=== PATIENT | female | born 1930 | race African-American/Black ===

== ENCOUNTER 2019-11-03 15:55 | Inpatient (IN) | payer MEDICARE ==
[~2019-11-03] VITALS: Ht 167.6 cm; Wt 62.6 kg
[2019-11-03] MEDS ORDERED: CARAFATE1 G PO (16:31)
[2019-11-03] MEDS ORDERED: GABAPENTIN300 MG PO (16:31)
[2019-11-03] MEDS ORDERED: HYDRALAZINE HCL25 MG PO (16:31)
[2019-11-03] MEDS ORDERED: LEXAPRO10 MG PO (16:32)
[2019-11-03] MEDS ORDERED: AVAPRO300 MG PO (16:32)
[2019-11-03] MEDS ORDERED: CYPROHEPTAD2 MG/5 ML PO (16:32)
[2019-11-03] MEDS ORDERED: DONEPEZIL HCL5 MG PO (16:32)
[2019-11-03] MEDS ORDERED: HUMALOG 30100 UNITS/ SC (16:33)
[2019-11-03] MEDS ORDERED: MAG-OX 400 MG400 MG PO (16:33)
[2019-11-03] MEDS ORDERED: HYDROCODON-ACE1 EA10 PO (16:34)
[2019-11-03 17:41] LABS: BASOPHILS 0.1 % (0-2); EOSINOPHILS 0.3 % (0-7); HEMATOCRIT 33.3 % (36.0-48.0); HEMOGLOBIN 10.7 g/dL (12-16); IMMATURE GRANULOCYTES 0.1 % (0-5); LYMPHOCYTES 23.4 % (15-50); MCH 31.8 pg (26.0-34.0); MCHC 32.1 g/dL (31.0-37.0); MCV 98.8 fL (80.0-100.0); MEAN PLATELET VOLUME 12.3 fL (7.4-10.4); MONOCYTES 6.7 % (2-11); NEUTROPHILS 69.4 % (40-80); PLATELET COUNT 98 10x3/uL (130-400); RBC 3.37 10x6/uL (4.00-5.40); RDW 13.8 % (11.5-14.5); WBC 6.9 10x3/uL (4.8-10.8)
[2019-11-03 17:44] LABS: ANION GAP 18.5 mmol/L (8-16); CALCIUM 8.6 mg/dL (8.5-10.1); CARBON DIOXIDE 17.9 mmol/L (21.0-32.0); POTASSIUM - SERUM 5.4 mmol/L (3.5-5.1)
[2019-11-03 17:50] LABS: ALBUMIN 3.2 g/dL (3.4-5.0); BILIRUBIN - TOTAL 0.12 mg/dL (0.2-1.3); MAGNESIUM - SERUM 3.1 mg/dL (1.8-2.4); PROTEIN - SERUM 6.9 g/dL (6.4-8.2)
[2019-11-03 18:00] LABS: PLATELET ESTIMATE NORMAL
--- NOTE | 2019-11-03 18:43 | NUR ---
ATTEMPT TO CALL REPORT, ROOM IS DIRTY .
--- NOTE | 2019-11-03 19:45 | NUR ---
REPORT RECIEVED FROM ER.
--- NOTE | 2019-11-03 20:30 | NUR ---
ADMIT TO ROOM 2121 FROM ER. ACCOMPANIED BY DAUGHTERS X 2. ADMISSION HISTORY AND ASSESSMENT COMPLETED WITH FAMILY ASSISTANCE. PT HAS LITTLE TO SAY AND IS SLOW TO ANSWER. IVF .45NS +2AMPS BICARB INFUSING @ 125ML/HR TO LEFT ARM. PT HAS A COLOSTOMY/INTACT AND ALSO WEARING A BRIEF. PLAN OF CARE INITIATED. CPOC.
--- NOTE | 2019-11-03 23:36 | NUR ---
FSBS 140. PT RESTING WITH EYES CLOSED. COLOSTOMY BURPED. SR UP X 2. CALL LIGHT IN REACH. FALL PRECAUTIONS IN PLACE.
[2019-11-03 23:51] VITALS: BP 140/57; BMI 21.3
[2019-11-04 00:30] VITALS: BP 102/84
--- NOTE | 2019-11-04 01:31 | NUR ---
PT'S COLOSTOMY TO ABDOMEN LEAKING. BATH PROVIDED AND NEW COLOSTOMY APPLIED. SKIN TO ABODMEN/STOMA SITE IS INTACT/NO IRRITATION AND NEW WAFER /BAG APPLIED WITHOUT ISSUE. PT ALSO PULLED OUT HER IV TO LEFT ARM. WILL ATTEMPT RESITE. PT NOW CLEAN/DRY AND BED ALARM ACTIVATED. CPOC.
[2019-11-04 04:30] VITALS: BP 165/79
[2019-11-04 04:54] LABS: BASOPHILS 0.2 % (0-2); EOSINOPHILS 1.2 % (0-7); HEMATOCRIT 33.1 % (36.0-48.0); HEMOGLOBIN 10.9 g/dL (12-16); LYMPHOCYTES 18.8 % (15-50); MCHC 32.9 g/dL (31.0-37.0); MCV 97.1 fL (80.0-100.0); MONOCYTES 9.4 % (2-11); NEUTROPHILS 70.4 % (40-80); PLATELET COUNT 100 10x3/uL (130-400); RBC 3.41 10x6/uL (4.00-5.40); RDW 13.5 % (11.5-14.5)
[2019-11-04 05:21] LABS: ALBUMIN 3.2 g/dL (3.4-5.0); ANION GAP 17.6 mmol/L (8-16); BILIRUBIN - TOTAL 0.18 mg/dL (0.2-1.3); CALCIUM 8.8 mg/dL (8.5-10.1); CARBON DIOXIDE 19.3 mmol/L (21.0-32.0); CREATININE - SERUM 6.9 mg/dL (0.6-1.3); MAGNESIUM - SERUM 2.9 mg/dL (1.8-2.4); PHOSPHOROUS 3.8 mg/dL (2.5-4.9); POTASSIUM - SERUM 4.9 mmol/L (3.5-5.1); PROTEIN - SERUM 7.2 g/dL (6.4-8.2)
--- NOTE | 2019-11-04 06:00 | NUR ---
WITH FALL PRECAUTIONS IN PLACE, PT HAS ATTEMPTED 3 TIMES TO CLIMB OVER RAILS TO "PEE". EACH TIME STAFF WAS ABLE TO GET TO HER TO ASSIST BUT SHE HAS NO STRENGTH AND JUST LOSES HER BALANCE. CONFUSED, DOES NOT TAKE DIRECTION WELL. VERY FORGETFUL. ATTEMPTED TIMES 5 STICKS TO RESITE IV AND ONE NURSE SUCCEEDED ONLY TO HAVE PATIENT IMMEDIATELY PULL IT OUT. DAY SHIFT NOTIFIED THAT PT NEEDS IV PLACEMENT.
--- NOTE | 2019-11-04 06:45 | NUR ---
WALKING ROUNDS COMPLETED AND REPORT GIVEN. PT AGAIN CLIMBING OVER RAILS AND WAS TAKEN TO BSC. FALL ALARM IN PLACE.
[2019-11-04 08:43] VITALS: BP 158/73
[2019-11-04 11:18] LABS: % SATURATION 42 % (15-55); IRON 71 ug/dl (35-150); TOTAL IRON BIND CAPACITY 167 ug/dl (260-445); UNSAT IRON BIND CAPACITY 96 ug/dl (150-375)
[2019-11-04 11:37] LABS: ERYTHROCYTE SEDIMENTATION RATE 20 mm/hr (0-42)
[2019-11-04 12:16] VITALS: BP 148/74
--- NOTE | 2019-11-04 12:35 | NUR ---
HELPED PT TO BEDSIDE COMMODE AND BACK TO BED. URINE SAMPLE COLLECTED AT THIS TIME. AND TAKEN TO LAB. PT DENIES ANY OTHER NEEDS AT THIS TIME. CALL LIGHT IN REACH, BEDSIDE RAILS X2, BED ALARM ON, NAD NOTED, WILL CONTINUE TO MONITOR.
[2019-11-04 13:46] LABS: PRO/CRE RATIO URINE 0.5 mg/g; PROTEIN - URINE 77.2 mg/dL (0.0-11.9)
[2019-11-04 14:46] LABS: BACTERIA MANY /hpf (NEGATIVE); BILIRUBIN NEGATIVE (NEGATIVE); EPITHELIAL CELLS 0-5 /hpf (0-5); GLUCOSE NEGATIVE (NEGATIVE); GRANULAR CAST 0-5 /lpf (NONE SEEN); HYALINE CAST 0-5 /lpf (NONE SEEN); KETONE NEGATIVE (NEGATIVE); NITRITE NEGATIVE (NEGATIVE); RED CELLS - URINE 0-5 /hpf (0-5); SPECIFIC GRAVITY 1.015 (1.005-1.020); UROBILINOGEN NORMAL (NORMAL); WHITE CELLS - URINE OCC /hpf (NEGATIVE)
[2019-11-04 15:31] VITALS: Ht 167.6 cm; Wt 62.6 kg
[2019-11-04 15:47] VITALS: BP 114/93
--- NOTE | 2019-11-04 19:38 | NUR ---
UP WITH ASSIST TO BSC. ASSISTED PT BACK TO BED, BED ALARM IN USE.
[2019-11-04 20:34] VITALS: BP 135/61
[2019-11-05 00:31] VITALS: BP 177/74
--- NOTE | 2019-11-05 02:54 | NUR ---
RESTING WITH EYES CLOSED, RESPERATIONS EVEN, NO S/S DISTRESS NOTED.
[2019-11-05 05:19] VITALS: BP 135/53
[2019-11-05 08:52] LABS: BASOPHILS 0.3 % (0-2); EOSINOPHILS 1.4 % (0-7); HEMATOCRIT 29.7 % (36.0-48.0); HEMOGLOBIN 9.9 g/dL (12-16); LYMPHOCYTES 29.2 % (15-50); MCH 31.9 pg (26.0-34.0); MCHC 33.3 g/dL (31.0-37.0); MCV 95.8 fL (80.0-100.0); MEAN PLATELET VOLUME 12.9 fL (7.4-10.4); MONOCYTES 7.7 % (2-11); NEUTROPHILS 61.4 % (40-80); PLATELET COUNT 90 10x3/uL (130-400); RDW 13.2 % (11.5-14.5)
[2019-11-05 09:01] LABS: CALCIUM 8.4 mg/dL (8.5-10.1)
[2019-11-05 09:03] LABS: ANION GAP 10.3 mmol/L (8-16); CARBON DIOXIDE 26.8 mmol/L (21.0-32.0); CREATININE - SERUM 4.1 mg/dL (0.6-1.3); POTASSIUM - SERUM 4.1 mmol/L (3.5-5.1)
[2019-11-05 09:06] LABS: WBC 3.6 10x3/uL (4.8-10.8)
[2019-11-05 09:52] VITALS: BP 183/62
[2019-11-05 10:44] LABS: PLATELET ESTIMATE DECREASED
[2019-11-05 10:45] LABS: ANISOCYTOSIS OCC
[2019-11-05 14:08] VITALS: BP 134/55
--- NOTE | 2019-11-05 14:38 | NUR ---
PER JUAN, PHARMACIST. ROCEPHINE IS COMPATIBLE WITH 1/2NS WITH 2AMPS OF SODIUM BICARB.
[2019-11-05 15:10] LABS: SPE - A/G RATIO 0.9 (0.7-1.7); SPE - ALBUMIN 3.2 g/dL (2.9-4.4); SPE - ALPHA-1 GLOBULIN 0.2 g/dL (0.0-0.4); SPE - ALPHA-2 GLOBULIN 0.8 g/dL (0.4-1.0); SPE - BETA GLOBULIN 0.8 g/dL (0.7-1.3); SPE - GAMMA GLOBULIN 1.5 g/dL (0.4-1.8); SPE - M-SPIKE 1.1 g/dL (Not Observed); SPE - TOTAL PROTEIN 6.6 g/dL (6.0-8.5)
[2019-11-05 16:00] VITALS: BP 158/56
--- NOTE | 2019-11-05 16:16 | NUR ---
BLOOD SUGAR OF 81, NO COVERAGE NEEDED PER S/S PT RESTING COMFORTABLY IN BED, DENIES ANY NEEDS AT THIS TIME. CALL LIGHT IN REACH, NAD NOTED, WILL CONTINUE TO MONITOR.
--- NOTE | 2019-11-05 20:13 | NUR ---
UP WITH ASSIST TO BSC.
[2019-11-05 21:17] VITALS: BP 124/61
[2019-11-06 00:26] VITALS: BP 112/53
--- NOTE | 2019-11-06 02:14 | NUR ---
I have reviewed this patient and I concur with the Shift Assessment completed by the Licensed Practical Nurse today this shift.
[2019-11-06 06:00] VITALS: BP 133/62
[2019-11-06 07:25] LABS: ANION GAP 9.3 mmol/L (8-16); CALCIUM 7.8 mg/dL (8.5-10.1); CARBON DIOXIDE 27.8 mmol/L (21.0-32.0); POTASSIUM - SERUM 4.1 mmol/L (3.5-5.1)
[2019-11-06 07:31] LABS: BASOPHILS 0.2 % (0-2); EOSINOPHILS 2.4 % (0-7); HEMATOCRIT 26.7 % (36.0-48.0); HEMOGLOBIN 8.8 g/dL (12-16); IMMATURE GRANULOCYTES 0.2 % (0-5); LYMPHOCYTES 33.8 % (15-50); MCH 31.7 pg (26.0-34.0); MEAN PLATELET VOLUME 12.7 fL (7.4-10.4); MONOCYTES 8.5 % (2-11); NEUTROPHILS 54.9 % (40-80); PLATELET COUNT 92 10x3/uL (130-400); RBC 2.78 10x6/uL (4.00-5.40); RDW 13.1 % (11.5-14.5); WBC 4.1 10x3/uL (4.8-10.8)
--- NOTE | 2019-11-06 08:58 | NUR ---
HELPED PT BEDSIDE COMMODE AND BACK TO BED. GOWN CHANGED, AM MEDS GIVEN AT THIS TIME. PT DENIES ANY OTHER NEEDS AT THIS TIME. CALL LIGHT IN REACH, NAD NOTED, WILL CONTINUE PLAN OF CARE.
[2019-11-06 11:29] VITALS: BP 145/57
--- NOTE | 2019-11-06 14:42 | NUR ---
Nutrition Follow-up: Per record, pt ate 100% of breakfast and 50% of lunch today. Diet: Renal ADA PO intake: 65% avg x 5 meals Wt: 137.7# (11/05); 132.2# (11/03) Labs noted: Na 146, K+ 4.1, Glu 102, Ca 7.8 Meds noted: D5 1/2NS @ 75, Protonix, Humulin -Encourage PO intake. -Monitor wt; noted daily wts ordered. -RD following.
[2019-11-06 15:19] VITALS: BP 141/81
--- NOTE | 2019-11-06 17:06 | NUR ---
BLOOD SUGAR OF 84, NO COVERAGE NEEDED PER S/S. HELPED PT TO BEDSIDE COMMODE AND BACK TO BED. ALSO EMPTIED ABOUT 100CC OUT OF COLOSTOMY BAG. PT DENIES ANY OTHER NEEDS AT THIS TIME. CALL LIGHT IN REACH, BED ALARM ON.
--- NOTE | 2019-11-06 19:16 | NUR ---
RECEIVED BEDSIDE REPORT. PATIENT IS ALERT AND ORIENTED, RESTING COMFORTABLY IN BED. RESPIRATIONS ARE EVEN AND UNLABORED. NO S/S OF DISTRESS. NO C/OPAIN. CALL LIGHT WITHIN REACH. WILL CPOC.
[2019-11-06 20:00] VITALS: BP 138/63
[2019-11-07] VITALS: BP 148/75
[2019-11-07 04:00] VITALS: BP 126/71
[2019-11-07 05:46] LABS: ANION GAP 10.1 mmol/L (8-16); CALCIUM 7.6 mg/dL (8.5-10.1); CARBON DIOXIDE 27.9 mmol/L (21.0-32.0); CREATININE - SERUM 2.6 mg/dL (0.6-1.3)
[2019-11-07 05:47] LABS: BASOPHILS 0.2 % (0-2); EOSINOPHILS 1.8 % (0-7); HEMATOCRIT 25.5 % (36.0-48.0); HEMOGLOBIN 8.4 g/dL (12-16); IMMATURE GRANULOCYTES 0.2 % (0-5); MCH 31.3 pg (26.0-34.0); MCHC 32.9 g/dL (31.0-37.0); MCV 95.1 fL (80.0-100.0); MEAN PLATELET VOLUME 11.7 fL (7.4-10.4); MONOCYTES 10.9 % (2-11); NEUTROPHILS 49.9 % (40-80); PLATELET COUNT 89 10x3/uL (130-400); RBC 2.68 10x6/uL (4.00-5.40); RDW 12.9 % (11.5-14.5); WBC 4.5 10x3/uL (4.8-10.8)
[2019-11-07 09:11] LABS: PLATELET ESTIMATE DECREASED
[2019-11-07 09:12] LABS: ANISOCYTOSIS OCC
[2019-11-07 10:00] VITALS: BP 142/85
[2019-11-07 14:04] VITALS: BP 156/66
[2019-11-07 18:03] VITALS: BP 158/80
[2019-11-07 20:30] VITALS: BP 122/74
[2019-11-08 00:30] VITALS: BP 159/72
--- NOTE | 2019-11-08 03:39 | NUR ---
I have reviewed this patient and I concur with the Shift Assessment completed by the Licensed Practical Nurse today this shift.
--- NOTE | 2019-11-08 04:11 | NUR ---
PT UP TO BSC, IV TO RIGHT ARM OUT. IV REISTED TO RIGHT HAND, 20 GUAGE, PT TOLERATED WELL.
[2019-11-08 04:30] VITALS: BP 168/81
[2019-11-08 05:33] LABS: BASOPHILS 0.2 % (0-2); HEMATOCRIT 27.4 % (36.0-48.0); HEMOGLOBIN 8.9 g/dL (12-16); IMMATURE GRANULOCYTES 0.4 % (0-5); LYMPHOCYTES 35.6 % (15-50); MCH 31.6 pg (26.0-34.0); MCHC 32.5 g/dL (31.0-37.0); MEAN PLATELET VOLUME 11.7 fL (7.4-10.4); MONOCYTES 8.6 % (2-11); NEUTROPHILS 53.2 % (40-80); PLATELET COUNT 92 10x3/uL (130-400); RBC 2.82 10x6/uL (4.00-5.40); RDW 12.9 % (11.5-14.5); WBC 4.9 10x3/uL (4.8-10.8)
[2019-11-08 05:39] LABS: MCV 97.2 fL (80.0-100.0)
[2019-11-08 05:55] LABS: ANION GAP 10.9 mmol/L (8-16); CALCIUM 7.7 mg/dL (8.5-10.1); CARBON DIOXIDE 29.3 mmol/L (21.0-32.0); CREATININE - SERUM 2.2 mg/dL (0.6-1.3); POTASSIUM - SERUM 4.2 mmol/L (3.5-5.1)
--- NOTE | 2019-11-08 07:10 | NUR ---
REPORT RECEIVED [facility] CHIEF EMBALMER AND PATIENT CARE ASSUMED. PATIENT LAYING IN BED ON RT SIDE WITH EYES CLOSED AND BREATHING EVENLY. WILL CONTINUE WITH PLANH OF CARE. SR UP X 2 BED IN LOW POSITION AND CALL LIGHT IN REACH.
[2019-11-08 10:45] LABS: UPE RAND - ALBUMIN 37.1 % (()); UPE RAND - ALPHA 1 GLOBULIN 24.1 % (()); UPE RAND - BETA GLOBULIN 12.9 % (()); UPE RAND - GAMMA GLOBULIN 16.9 % (())
[2019-11-08 10:46] VITALS: BP 157/77
[2019-11-08] MEDS ORDERED: OMNICEF300 MG PO (12:45)
--- NOTE | 2019-11-08 13:30 | NUR ---
PATIENT IS STABLE AND VSS. PATIENT DENIES ANY NEEDS OR PAIN. WILL CONTINUE TO MONITOR. SR UP X 2 BED IN LOW POSITION AND CALL LIGHT IN REACH.
--- NOTE | 2019-11-08 15:30 | MORECARE ---
CASE MANAGEMENT DISCHARGE SUMMARY PATIENT: LONNIE NEWTON UNIT: [id number] ADM DATE: 11/03/19 AGE: 89 : [birth year] SEX: F ROOM/BED: D.1313 AUTHOR: SPENCER,DOC PHYSICIAN: REFERRING PHYSICIAN: CARLOS CONTI MD DATE OF SERVICE: 11/08/19 Discharge Plan Patient Name: LONNIE NEWTON Facility: [facility]:[place] : 1930 Planned Disposition: Home Anticipated Discharge Date: 11/08/19 Discharge Date: Expected LOS: 5 Initial Reviewer: [email or web address] Initial Review Date: 11/08/2019 Generated: 11/08/19 4:30 pm DCP- Discharge Planning Updated by [email or web address]: Severino Hodges on 11/08/19 2:[address] Patient Name: LONNIE NEWTON Admission Status: ER Accout number: [id number] Admission Date: 11-03-2019 : 1930 Admission Diagnosis: Attending: CARLOS CONTI Current LOS: 5 Anticipated DC Date: 11-08-2019 Planned Disposition: Home Primary Insurance: [facility] MEDICARE SOLUTIONS Discharge Planning Comments: CM MET WITH PT IN ROOM TO DISCUSS DISCHARGE PLANNING AND NEEDS. PT REPORTS LIVING AT HOME "MOSTLY" INDEPENDENTLY WITH HER ADULT DAUGHTER. PT REPORTS THAT HER DAUGHTER MANAGES HER MEDICATIONS FOR HER. PT HAS CANE AND GLUCOMETER WITH NO MEDICAL EQUIPMENT PROVIDER PREFERENCE. PT HAS NO OUTSIDE SERVICES ASSISTING IN THE HOME. CM DISCUSSED AVAILABILITY OF HOME HEALTH, REHAB SERVICES AND MEDICAL EQUIPMENT. PT DENIES DISCHARGE NEEDS, REPORTS HER DAUGHTER IS HERE IN [place] AT [facility] AND SHE WILL PICK PT UP FOR DISCHARGE HOME. IMPORTANT MESSAGE FROM MEDICARE PROVIDED AND EXPLAINED. PT WILL HAVE HER DAUGHTER CALL CM WHEN SHE RETURNS TO THE HOSPITAL IF SHE FEELS PT NEEDS ANYTHING ARRANGED FOR DISCHARGE HOME TODAY. FIRER GLOST KILN NURSE NOTIFIED. Strategic Marketing Specialist: Severino Hodges DCPIA - Discharge Planning Initial Assessment Updated by [email or web address]: Severino Hodges on 11/08/19 3:26 pm * Is the patient Alert and Oriented? Yes * How many steps to enter\\exit or inside your home? * PCP DR. KRISTY GUERRA IN [place] OR [facility] IN [place] * Pharmacy [facility] IN [place] * Preadmission Environment Home with Family * ADLs Partial Dependent * Partial ADLs (Assistance needed) Medication Management * Equipment Cane Glucometer * Other Equipment NO MEDICAL EQUIPMENT PROVIDER PREFERENCE * List name and contact numbers for known caregivers / representatives who currently or will assist patient after discharge: EBENEZERTIFFANIE MCKEON, DTR, * Verbal permission to speak to the caregivers and representatives has been obtained from the patient. N/A * Community resources currently utilized None * Please name any agencies selected above. NONE * Additional services required to return to the preadmission environment? No * Can the patient safely return to the preadmission environment? Yes * Has this patient been hospitalized within the prior 30 days at any hospital? No Coverage Notice Reviewer: [email or web address] Devonte Hodges Notice Issued Date-Time: 11/08/2019 13:40 Notice Type: IM Discharge Notice Notice Delivered To: Patient Relationship to Patient: Office Messenger Name: Delivery Method: HAND - Hand Delivered Barbie Days: Prior Verbal Notification: Recipient Understood Notice: Yes Recipient Signature: Yes Med Rec Note Co-signed by Attending: Coverage Notice Comment: Patient Name: LONNIE NEWTON Page [id number] at 1530 All edits/amendments must be made on the electronic document DICTATION DATE: 11/08/19 153 FLY FRAME TENDER: MARKEL 11/08/19 153 RPT#: [id number] DC DATE: STATUS: ADM IN [facility] [address] [place] [address] END OF REPORT
--- NOTE | 2019-11-08 17:17 | MORECARE ---
CASE MANAGEMENT DISCHARGE SUMMARY PATIENT: LONNIE NEWTON UNIT: [id number] ADM DATE: 11/03/19 AGE: 89 : [birth year] SEX: F ROOM/BED: D.6364 AUTHOR: SPENCER,DOC PHYSICIAN: REFERRING PHYSICIAN: CARLOS CONTI MD DATE OF SERVICE: 11/08/19 Discharge Plan Patient Name: LONNIE NEWTON Facility: [facility]:[place] : 1930 Planned Disposition: Home Anticipated Discharge Date: 11/08/19 Discharge Date: Expected LOS: 5 Initial Reviewer: [email or web address] Initial Review Date: 11/08/2019 Generated: 11/08/19 6:17 pm DCP- Discharge Planning Updated by [email or web address]: Severino Hodges on 11/08/19 2:[address] Patient Name: LONNIE NEWTON Admission Status: ER Accout number: [id number] Admission Date: 11-03-2019 : 1930 Admission Diagnosis: Attending: CARLOS CONTI Current LOS: 5 Anticipated DC Date: 11-08-2019 Planned Disposition: Home Primary Insurance: [facility] MEDICARE SOLUTIONS Discharge Planning Comments: CM MET WITH PT IN ROOM TO DISCUSS DISCHARGE PLANNING AND NEEDS. PT REPORTS LIVING AT HOME "MOSTLY" INDEPENDENTLY WITH HER ADULT DAUGHTER. PT REPORTS THAT HER DAUGHTER MANAGES HER MEDICATIONS FOR HER. PT HAS CANE AND GLUCOMETER WITH NO MEDICAL EQUIPMENT PROVIDER PREFERENCE. PT HAS NO OUTSIDE SERVICES ASSISTING IN THE HOME. CM DISCUSSED AVAILABILITY OF HOME HEALTH, REHAB SERVICES AND MEDICAL EQUIPMENT. PT DENIES DISCHARGE NEEDS, REPORTS HER DAUGHTER [place] [facility] AND SHE WILL PICK PT UP FOR DISCHARGE HOME. IMPORTANT MESSAGE FROM MEDICARE PROVIDED AND EXPLAINED. PT WILL HAVE HER DAUGHTER CALL CM WHEN SHE RETURNS TO THE HOSPITAL IF SHE FEELS PT NEEDS ANYTHING ARRANGED FOR DISCHARGE HOME TODAY. BAND CUTTING MACHINE OPERATOR NURSE NOTIFIED. Contractor Broomcorn Threshing: Severino Hodges DCPIA - Discharge Planning Initial Assessment Updated by [id number]: Severino Hodges on 11/08/19 3:26 pm * Is the patient Alert and Oriented? Yes * How many steps to enter\\exit or inside your home? * PCP DR. KRISTY GUERRA IN [place] OR [facility] IN [place] * Pharmacy [facility] IN [place] * Preadmission Environment Home with Family * ADLs Partial Dependent * Partial ADLs (Assistance needed) Medication Management * Equipment Cane Glucometer * Other Equipment NO MEDICAL EQUIPMENT PROVIDER PREFERENCE * List name and contact numbers for known caregivers / representatives who currently or will assist patient after discharge: EBENEZER MCKEON, DTR, * Verbal permission to speak to the caregivers and representatives has been obtained from the patient. N/A * Community resources currently utilized None * Please name any agencies selected above. NONE * Additional services required to return to the preadmission environment? No * Can the patient safely return to the preadmission environment? Yes * Has this patient been hospitalized within the prior 30 days at any hospital? No External Providers External Provider: [facility] Next Contact Date: 11/08/2019 Service Request Date: Service Type: Resolution: Reviewer: Comments: Coverage Notice Reviewer: [id number] Devonte Hodges Notice Issued Date-Time: 11/08/2019 13:40 Notice Type: IM Discharge Notice Notice Delivered To: Patient Relationship to Patient: Manager Machine Name: Delivery Method: HAND - Hand Delivered Barbie Days: Prior Verbal Notification: Recipient Understood Notice: Yes Recipient Signature: Yes Med Rec Note Co-signed by Attending: Coverage Notice Comment: Last DP export: 11/08/19 2:30 pm Patient Name: LONNIE NEWTON Page [phone] at 1717 All edits/amendments must be made on the electronic document DICTATION DATE: 11/08/191716 HEALTH IT SPECIALIST: MARKEL 11/08/191716 RPT#: [id number] DC DATE: STATUS: ADM IN [facility] [address] [place] [address] END OF REPORT
--- NOTE | 2019-11-08 17:24 | MORECARE ---
CASE MANAGEMENT DISCHARGE SUMMARY PATIENT: LONNIE NEWTON UNIT: [id number] ADM DATE: 11/03/19 AGE: 89 : [birth year] SEX: F ROOM/BED: D.0388 AUTHOR: SPENCER,DOC PHYSICIAN: REFERRING PHYSICIAN: CARLOS CONTI MD DATE OF SERVICE: 11/08/19 Discharge Plan Patient Name: LONNIE NEWTON Facility: [facility]:[place] : 1930 Planned Disposition: Home Anticipated Discharge Date: 11/08/19 Discharge Date: Expected LOS: 5 Initial Reviewer: [email or web address] Initial Review Date: 11/08/2019 Generated: 11/08/19 6:23 pm Comments DCP- Discharge Planning Updated by [email or web address]: Severino Naranjo on 11/08/19 4:[address] Patient Name: LONNIE NEWTON Admission Status: ER Accout number: [id number] Admission Date: 11-03-2019 : 1930 Admission Diagnosis: Attending: CARLOS CONTI Current LOS: 5 Anticipated DC Date: 11-08-2019 Planned Disposition: Home Primary Insurance: [facility] MEDICARE SOLUTIONS Discharge Planning Comments: CM MET WITH PT IN ROOM TO DISCUSS DISCHARGE PLANNING AND NEEDS. PT REPORTS LIVING AT HOME "MOSTLY" INDEPENDENTLY WITH HER ADULT DAUGHTER. PT REPORTS THAT HER DAUGHTER MANAGES HER MEDICATIONS FOR HER. PT HAS CANE AND GLUCOMETER WITH NO MEDICAL EQUIPMENT PROVIDER PREFERENCE. PT HAS NO OUTSIDE SERVICES ASSISTING IN THE HOME. CM DISCUSSED AVAILABILITY OF HOME HEALTH, REHAB SERVICES AND MEDICAL EQUIPMENT. PT DENIES DISCHARGE NEEDS, REPORTS HER DAUGHTER IS HERE IN [place] AT [facility] AND SHE WILL PICK PT UP FOR DISCHARGE HOME. IMPORTANT MESSAGE FROM MEDICARE PROVIDED AND EXPLAINED. PT WILL HAVE HER DAUGHTER CALL CM WHEN SHE RETURNS TO THE HOSPITAL IF SHE FEELS PT NEEDS ANYTHING ARRANGED FOR DISCHARGE HOME TODAY. PEDIATRIC DERMATOLOGIST NURSE NOTIFIED. Care Trainer: Severino Naranjo Appended by Severino Naranjo on 11/08/2019 17:19 LEVEE SUPERINTENDENT: MET WITH PT AND DAUGHTER WHO REQUESTED [facility], CHOICE SIGNED, PT AND DAUGHTER DENIES FURHTER NEEDS. CM CALLED [facility], SPOKE TO ANNA WHO TOOK REFERRAL INFORMATION, INFORMED CM THAT IT WOULD BE EARLY NEXT WEEK FOR ADMIT. BEDSIDE NURSE NOTIFIED. CM FAXED HOME HEALTH ORDER AND REFERRAL TO [facility]. PT NOTIFIED. DISCHARGED HOME WITH DAUGHTER. SEVERINO NARANJO, CASE MANAGEMENT DCPIA - Discharge Planning Initial Assessment Updated by [id number]: Severino Naranjo on 11/08/19 3:26 pm * Is the patient Alert and Oriented? Yes * How many steps to enter\\exit or inside your home? * PCP DR. KRISTY GUERRA IN [place] OR [facility] IN [place] * Pharmacy [facility] IN [place] * Preadmission Environment Home with Family * ADLs Partial Dependent * Partial ADLs (Assistance needed) Medication Management * Equipment Cane Glucometer * Other Equipment NO MEDICAL EQUIPMENT PROVIDER PREFERENCE * List name and contact numbers for known caregivers / representatives who currently or will assist patient after discharge: EBENEZER MCKEON DTR, * Verbal permission to speak to the caregivers and representatives has been obtained from the patient. N/A * Community resources currently utilized None * Please name any agencies selected above. NONE * Additional services required to return to the preadmission environment? No * Can the patient safely return to the preadmission environment? Yes * Has this patient been hospitalized within the prior 30 days at any hospital? No Coverage Notice Reviewer: [email or web address] Devonte Naranjo Notice Issued Date-Time: 11/08/2019 13:40 Notice Type: IM Discharge Notice Notice Delivered To: Patient Relationship to Patient: Warehouse Laborer Name: Delivery Method: HAND - Hand Delivered Barbie Days: Prior Verbal Notification: Recipient Understood Notice: Yes Recipient Signature: Yes Med Rec Note Co-signed by Attending: Coverage Notice Comment: Reviewer: [id number] Devonte Naranjo Notice Issued Date-Time: 11/08/2019 17:00 Notice Type: Patient Choice Letter Notice Delivered To: Patient Relationship to Patient: Warehouse Laborer Name: Delivery Method: HAND - Hand Delivered Barbie Days: Prior Verbal Notification: Recipient Understood Notice: Yes Recipient Signature: Yes Med Rec Note Co-signed by Attending: Coverage Notice Comment: [facility] Last DP export: 11/08/19 4:17 pm Patient Name: LONNIE NEWTON Page [phone] at 5754 All edits/amendments must be made on the electronic document DICTATION DATE: 11/08/19 172 ROTARY DRYER OPERATOR: MARKEL 11/08/19 1723 RPT#: [id number] DC DATE: STATUS: ADM IN [facility] [address] [place] [address] END OF REPORT
--- NOTE | 2019-11-08 17:36 | NUR ---
PATIENT IS STABLE AND VSS. ORDERS RECEIVED FOR DC. WRITTEN AND VERBAL INSTRUCTIONS GIVEN TO PATIENT AND FAMILY. BOTH VERBALIZED UNDERSTANDING. PATIENT SIGNED PAPERWORK. IV DCD WITHOUT DIFFICULTY WITH ENTIRE CATHETER INTACT. PRESSURE DRSG APPLIED. PATIENT IS DC HOME FOR SELF CARE. HOME HEALTH CONSULUTED. PATIENT TO FRONT DOOR VIA WC ACCOMPANIED BY HOPSITAL STAFF TO FRONT DOOR TO PRIVATE VEHICLE DRIVEN BY FAMILY.
== END 2019-11-08 18:01 | disposition home health service (06) | DRG 682 ==
LOC: D.ER 15:55 → D.M2 18:05 → D.SDCHOLD 11-07 15:26 → D.M2 11-08 18:01
PROVIDERS: Family Medicine; Internal Medicine Nephrology; ADMIT Internal Medicine Nephrology; ATTEND Internal Medicine Nephrology
DX: N17.9 Acute kidney failure, unspecified (principal); G93.41 Metabolic encephalopathy; N39.0 Urinary tract infection, site not specified; I12.9 Hypertensive chronic kidney disease with stage 1 through stage 4 chronic kidney disease, or unspecified chronic kidney disease; N18.9 Chronic kidney disease, unspecified; D63.1 Anemia in chronic kidney disease; E87.5 Hyperkalemia; F03.90 Unspecified dementia, unspecified severity, without behavioral disturbance, psychotic disturbance, mood disturbance, and anxiety; D69.6 Thrombocytopenia, unspecified; E11.22 Type 2 diabetes mellitus with diabetic chronic kidney disease; E11.65 Type 2 diabetes mellitus with hyperglycemia

== ENCOUNTER 2019-11-25 09:44 | Inpatient (IN) | payer MEDICARE ==
[~2019-11-25] VITALS: Ht 167.6 cm; Wt 54.9 kg
[~2019-11-25 09:44] MED LIST: AVAPRO300 MG PO; CARAFATE1 G PO; CYPROHEPTAD2 MG/5 ML PO; DONEPEZIL HCL5 MG PO; GABAPENTIN300 MG PO; HUMALOG 30100 UNITS/ SC; HYDRALAZINE HCL25 MG PO; HYDROCODON-ACE1 EA10 PO; LEXAPRO10 MG PO; MAG-OX 400 MG400 MG PO; OMNICEF300 MG PO
[2019-11-25] MEDS ORDERED: AVAPRO300 MG PO (09:53)
[2019-11-25] MEDS ORDERED: HYDRALAZINE HCL25 MG PO (09:53)
[2019-11-25 10:21] LABS: HEMATOCRIT 33.8 % (36.0-48.0); HEMOGLOBIN 10.9 g/dL (12-16); LYMPHOCYTES 35.4 % (15-50); MCH 31.7 pg (26.0-34.0); MCHC 32.2 g/dL (31.0-37.0); MCV 98.3 fL (80.0-100.0); MEAN PLATELET VOLUME 11.1 fL (7.4-10.4); NEUTROPHILS 56.4 % (40-80); RBC 3.44 10x6/uL (4.00-5.40); RDW 13.6 % (11.5-14.5); WBC 4.3 10x3/uL (4.8-10.8)
[2019-11-25 10:41] LABS: ANION GAP 15.4 mmol/L (8-16); CALCIUM 8.9 mg/dL (8.5-10.1); CARBON DIOXIDE 23.4 mmol/L (21.0-32.0); CREATININE - SERUM 4.5 mg/dL (0.6-1.3); POTASSIUM - SERUM 4.8 mmol/L (3.5-5.1)
[2019-11-25 10:47] LABS: ALBUMIN 3.3 g/dL (3.4-5.0); BILIRUBIN - TOTAL 0.23 mg/dL (0.2-1.3); PROTEIN - SERUM 7.6 g/dL (6.4-8.2)
[2019-11-25 10:59] LABS: PLATELET COUNT 140 10x3/uL (130-400)
[2019-11-25 11:42] VITALS: BP 126/64
[2019-11-25 12:14] VITALS: BP 155/65
--- NOTE | 2019-11-25 12:30 | NUR ---
PATIENT SITTING UP IN BED EATING AT THIS TIME. NO COMPLAINTS OR SIGNS OF DISTRESS. IV INTACT. SUMMERS AND COLOSTOMY INTACT. NO SKIN BREAKDOWN NOTED ANYWHERE AT THIS TIME. FAMILY AT BEDSIDE. CALL LIGHT WITHIN REACH.
[2019-11-25 15:52] LABS: BILIRUBIN NEGATIVE (NEGATIVE); GLUCOSE NEGATIVE (NEGATIVE); KETONE NEGATIVE (NEGATIVE); NITRITE NEGATIVE (NEGATIVE); UROBILINOGEN NORMAL (NORMAL)
[2019-11-25 15:53] LABS: AMORPHOUS SEDIMENT >1+ /lpf (NONE SEEN); BACTERIA MANY /hpf (NEGATIVE)
[2019-11-25] MEDS ORDERED: HUMALOG MIX 75/23 ML SC (16:32)
[2019-11-25] MEDS ORDERED: NEURONTIN 300300 MG PO (16:34)
[2019-11-25] MEDS ORDERED: HYDROCODON-ACE1 EA10 PO (16:37)
[2019-11-25] MEDS ORDERED: REMERON15 MG PO (16:37)
[2019-11-25 17:09] VITALS: BP 145/64
[2019-11-25 17:13] VITALS: BMI 19.5
--- NOTE | 2019-11-25 18:00 | NUR ---
PATIENT COLOSTOMY CHANGED. LEAKING OUT OF TOP. URINE SPECIMEN TAKEN STERILY FROM SUMMERS CATH AND SENT TO LAB. ASKED TO RERUN DUE TO LAST SPECIMEN NOT STERILE. ENVIRONMENTAL HEALTH SAFETY MANAGER WAS TOLD BY PHYSICIAN OK TO TAKE FROM BAG. CATHETER WAS PLACED IN [place] AND NOT A NEW CATH FROM HERE. PATIENT REPOSITIONED IN BED. IV INTACT. BED ALARM ON. CALL LIGHT WITHIN REACH.
[2019-11-25 18:13] LABS: ANION GAP 16.1 mmol/L (8-16); CARBON DIOXIDE 18.9 mmol/L (21.0-32.0); CREATININE - SERUM 3.8 mg/dL (0.6-1.3)
[2019-11-25 20:14] VITALS: BP 164/63
--- NOTE | 2019-11-25 23:02 | NUR ---
SPOKE WITH DR GARDNER, INFOMED HER THAT PT IS VERY AGITATED, SHE IS CLIMBING OUT OF BED, PULLING AT HER SUMMERS CATH, HAS PULLED HER TELEMETRY OFF MULTIPLE TIMES, HAS ATTEMPTED TO PULL OUT IV CATH. SEVERAL NURSING STAFF MEMBERS HAVE BEEN IN ROOM TO ASSIST PT BACK TO BED AND SOON THE NURSE OR LOAD BLOCKER LEAVE THE ROOM PT IS BACK OUT OF BED WITH BED ALARM SOUNDING. ATTEMPTED TO EXPLAIN SAFETY TO PT AND THAT I DIDNT WANT HER TO FALL AND GET HURT, PT IN RETURN TOLD THIS NURSE THAT IF SHE FALLS, SHE IS GOING TO TELL HER FAMILY THAT I "PUSHED HER". AT 23:02, HALDOL 1 MG GIVEN IM FOR PTS AGITATION AND AGGRESSION.
[2019-11-26 00:08] VITALS: BP 167/65
--- NOTE | 2019-11-26 00:13 | NUR ---
RESTING WITH EYES CLOSED, RESPERATIONS EVEN, NO S/S DISTRESS NOTED.
--- NOTE | 2019-11-26 04:24 | NUR ---
I have reviewed this patient and I concur with the Shift Assessment completed by the Licensed Practical Nurse today this shift.
[2019-11-26 05:20] LABS: HEMATOCRIT 27.5 % (36.0-48.0); LYMPHOCYTES 29.3 % (15-50); MCH 31.9 pg (26.0-34.0); MCHC 32.7 g/dL (31.0-37.0); MCV 97.5 fL (80.0-100.0); MEAN PLATELET VOLUME 11.6 fL (7.4-10.4); NEUTROPHILS 61.6 % (40-80); RBC 2.82 10x6/uL (4.00-5.40); RDW 13.6 % (11.5-14.5); WBC 4.5 10x3/uL (4.8-10.8)
[2019-11-26 05:34] LABS: PLATELET COUNT 109 10x3/uL (130-400)
[2019-11-26 05:50] LABS: ALBUMIN 2.8 g/dL (3.4-5.0); ANION GAP 11.9 mmol/L (8-16); BILIRUBIN - TOTAL 0.17 mg/dL (0.2-1.3); CALCIUM 7.8 mg/dL (8.5-10.1); CARBON DIOXIDE 23.1 mmol/L (21.0-32.0); CREATININE - SERUM 3.4 mg/dL (0.6-1.3); PROTEIN - SERUM 6.4 g/dL (6.4-8.2)
[2019-11-26 08:08] VITALS: BP 161/52
[2019-11-26 09:18] VITALS: Ht 167.6 cm; Wt 54.9 kg
[2019-11-26 12:02] VITALS: BP 166/70
--- NOTE | 2019-11-26 13:16 | NUR ---
CALLED TO INQUIRE ABOUT PT WANTING PEG TUBE OR NOT. PTS FAMILY AT BEDSIDE AND THEY DECIDE AGAINST IT.
--- NOTE | 2019-11-26 16:01 | MORECARE ---
CASE MANAGEMENT DISCHARGE SUMMARY PATIENT: LONNIE NEWTON UNIT: [id number] ADM DATE: 11/25/19 AGE: 89 : [birth year] SEX: F ROOM/BED: D.2104 AUTHOR: RAYSA PALMER PHYSICIAN: REFERRING PHYSICIAN: CARLOS CONTI MD DATE OF SERVICE: 11/26/19 Discharge Plan Patient Name: LONNIE NEWTON Facility: [facility]:[place] : 1930 Planned Disposition: Home with Hospice Anticipated Discharge Date: 11/27/19 Discharge Date: Expected LOS: 2 Initial Reviewer: [email or web address] Initial Review Date: 11/26/2019 Generated: 11/26/19 5:00 pm DCPIA - Discharge Planning Initial Assessment Updated by [email or web address]: Severino Hodges on 11/26/19 3:55 pm * Is the patient Alert and Oriented? Yes * How many steps to enter\exit or inside your home? * PCP DR. KRISTY GUERRA IN [place] * Pharmacy [facility] IN [place] * Preadmission Environment Home with Family * ADLs Partial Dependent * Partial ADLs (Assistance needed) Medication Management Transfers * Equipment Cane Glucometer * Other Equipment NO MEDICAL EQUIPMENT PROVIDER PREFERENCE * List name and contact numbers for known caregivers / representatives who currently or will assist patient after discharge: EBENEZER MCKEON DTR, * Verbal permission to speak to the caregivers and representatives has been obtained from the patient. N/A * Community resources currently utilized Home Health * Please name any agencies selected above. [facility] * Additional services required to return to the preadmission environment? No * Can the patient safely return to the preadmission environment? Yes * Has this patient been hospitalized within the prior 30 days at any hospital? Yes External Providers External Provider: [facility] in Next Contact Date: 11/26/2019 Service Request Date: Service Type: Resolution: Reviewer: Comments: Patient Name: LONNIE NEWTON Page [phone] at 1601 All edits/amendments must be made on the electronic document DICTATION DATE: 11/26/191599 COLOR SPECIALIST: DM 11/26/191599 RPT#: [id number] DC DATE: STATUS: ADM IN [facility] [address] [place] [address] END OF REPORT
--- NOTE | 2019-11-26 16:09 | MORECARE ---
CASE MANAGEMENT DISCHARGE SUMMARY PATIENT: LONNIE NEWTON UNIT: [id number] ADM DATE: 11/25/19 AGE: 89 : [birth year] SEX: F ROOM/BED: D.2106 AUTHOR: SPENCER,DOC PHYSICIAN: REFERRING PHYSICIAN: CARLOS CONTI MD DATE OF SERVICE: 11/26/19 Discharge Plan Patient Name: LONNIE NEWTON Facility: [facility]:[place] : 1930 Planned Disposition: Home with Hospice Anticipated Discharge Date: 11/27/19 Discharge Date: Expected LOS: 2 Initial Reviewer: [id number] Initial Review Date: 11/26/2019 Generated: 11/26/19 5:09 pm Comments DCP- Discharge Planning Updated by [id number]: Severino Hodges on 11/26/19 3:[address] Patient Name: LONNIE NEWTON Admission Status: Elective Accout number: [id number] Admission Date: 11-25-2019 : 1930 Admission Diagnosis: Attending: CARLOS CONTI Current LOS: 1 Anticipated DC Date: 11-27-2019 Planned Disposition: Home with Hospice Primary Insurance: [facility] MEDICARE SOLUTIONS PLANNED EXTERNAL PROVIDER: [facility] Discharge Planning Comments: CM RECEIVED HOSPICE ORDER, SPOKE TO DR. GARDNER WHO INFORMED CM THAT PT'S FAMILY REQUESTING HOME HOSPICE WITH [facility], HAS CALLED [facility]. CM MET WITH PT AND RON SOL IN ROOM. EBENEZER REPORTS THAT PT IS NOT EATING OR DRINKING AND IS HAVING [facility] ADMITS AND FAMILY AGREES THAT PT NEEDS HOSPICE AND THEY WANT TO TAKE CARE OF PT AT HOME. PT HAS BEEN MOSTLY INDEPENDENT UNTIL RECENTLY AND HAS BEEN HAVING TROUBLE WITH BALANCE AND WALKING. PT HAS CANE AND GLUCOMETER AT HOME. THEY DID HAVE HOME HEALTH THAT RECENTLY STARTED WITH [facility] CM DISCUSSED [facility] OF HOSPICE PROVIDERS AND SERVICES. THEY ARE IN AGREEMENT WITH [facility], CHOICE COMPLETED. IMPORTANT MESSAGE FROM MEDICARE PROVIDED AND EXPLAINED. CM RECEIVED CALL FROM [facility] WHO INFORMED CM THEY ARE OUT OF AREA AND DO NOT SERVICE PT'S AREA; CM DISCUSSED [facility], [facility] AND [facility]. PT'S DAUGHTER ASKED FOR [facility]; CM FOUND THAT THEY DO NOT SERVICE THE PT'S HOME AREA. PT'S DANIALRAFFAELE ASKED FOR [facility]. CM CALLED [facility], , SPOKE TO ALICIA WHO TOOK REFERRAL INFORMATION. CM RECEIVED CALL FROM ROBERT OF [facility] WHO WILL EVALUATE PT AND PROVIDE REFERRAL TO [facility] [place] TO ARRANGE ANY EQUIPMENT AND ADMIT PT UPON HER ARRIVAL AT HOME. CM FAXED REFERRAL TO [facility] AT [phone]. CM WAITING COMPLETION OF [facility] EVALUATION AND FAMILY AGREEMENT FOR HOSPICE WITH [facility] AT HOME. [facility] TO ADMIT PT FOR HOME HOSPICE AFTER ARRIVAL AT HOME. Check Processing Clerk: Severino Hodges DCPIA - Discharge Planning Initial Assessment Updated by [id number]: Severino Hodges on 11/26/19 3:55 pm * Is the patient Alert and Oriented? Yes * How many steps to enter\exit or inside your home? * PCP DR. KRISTY GUERRA IN [place] * Pharmacy [facility] [place] * Preadmission Environment Home with Family * ADLs Partial Dependent * Partial ADLs (Assistance needed) Medication Management Transfers * Equipment Cane Glucometer * Other Equipment NO MEDICAL EQUIPMENT PROVIDER PREFERENCE * List name and contact numbers for known caregivers / representatives who currently or will assist patient after discharge: EBENEZER MCKEON, DTR, * Verbal permission to speak to the caregivers and representatives has been obtained from the patient. N/A * Community resources currently utilized Home Health * Please name any agencies selected above. [facility] * Additional services required to return to the preadmission environment? No * Can the patient safely return to the preadmission environment? Yes * Has this patient been hospitalized within the prior 30 days at any hospital? Yes Coverage Notice Reviewer: [id number] Devonte Hodges Notice Issued Date-Time: 11/26/2019 14:52 Notice Type: IM Discharge Notice Notice Delivered To: Family Member Relationship to Patient: Daughter Head Usher Name: EBENEZER MCKEON Delivery Method: HAND - Hand Delivered Barbie Days: Prior Verbal Notification: Recipient Understood Notice: Yes Recipient Signature: Yes Med Rec Note Co-signed by Attending: Coverage Notice Comment: Reviewer: [id number] Hodges Notice Issued Date-Time: 11/26/2019 14:52 Notice Type: Patient Choice Letter Notice Delivered To: Family Member Relationship to Patient: Daughter Head Usher Name: EBENEZER MCKEON Delivery Method: HAND - Hand Delivered Barbie Days: Prior Verbal Notification: Recipient Understood Notice: Yes Recipient Signature: Yes Med Rec Note Co-signed by Attending: Coverage Notice Comment: [facility] Last DP export: 11/26/19 3:01 p Patient Name: LONNIE NEWTON Page [id number] at 1609 All edits/amendments must be made on the electronic document DICTATION DATE: 11/26/191608 INFECTION CONTROL MANAGER: MARKEL 11/26/19 1609 RPT#: [id number] DC DATE: STATUS: ADM IN [facility] [address] [place] [address] END OF REPORT
--- NOTE | 2019-11-26 16:23 | NUR ---
HOSPICE NURSE AT BEDSIDE TO EVALUATE FOR HOME HOSPICE.
[2019-11-26 17:33] VITALS: BP 112/58
--- NOTE | 2019-11-26 19:59 | NUR ---
REPORT RECIEVD AND ROUNDING COMPLETE. LAYING IN BED IN LOW FOWLERS POSITION, RIGHT HANF PIV RUNNING FLUIDS NO S/SX OF INFILTRATION. EYES CLOSED, BREATHING SHALLOW BUT EVEN. EASILY AROUSED. SUMMERS HAS SCANT URINE IN SUMMERS BAG. OSTOMY BAG PRESENT WITH SCANT AMOUNT OF DISCHARGE. NO S/SX OF DISTRESS AT THIS TIME. CALL LIGHT WITHIN REACH AND BED IN LOWEST LOCKED POSITION, BED ALARM ON.
[2019-11-26 21:55] VITALS: BP 108/55
[2019-11-27 00:33] VITALS: BP 116/49
--- NOTE | 2019-11-27 04:47 | NUR ---
I have reviewed this patient and I concur with the Shift Assessment completed by the Licensed Practical Nurse today this shift.
[2019-11-27 04:56] VITALS: BP 95/45
[2019-11-27 06:08] LABS: HEMATOCRIT 25.9 % (36.0-48.0); HEMOGLOBIN 8.3 g/dL (12-16); LYMPHOCYTES 33.7 % (15-50); MCH 31.6 pg (26.0-34.0); MCV 98.5 fL (80.0-100.0); MEAN PLATELET VOLUME 11.9 fL (7.4-10.4); NEUTROPHILS 55.6 % (40-80); PLATELET COUNT 102 10x3/uL (130-400); RBC 2.63 10x6/uL (4.00-5.40); RDW 13.7 % (11.5-14.5); WBC 4.3 10x3/uL (4.8-10.8)
[2019-11-27 06:26] LABS: ALBUMIN 2.7 g/dL (3.4-5.0); ANION GAP 11.1 mmol/L (8-16); BILIRUBIN - TOTAL 0.19 mg/dL (0.2-1.3); CALCIUM 7.9 mg/dL (8.5-10.1); CARBON DIOXIDE 26.1 mmol/L (21.0-32.0); CREATININE - SERUM 2.7 mg/dL (0.6-1.3); POTASSIUM - SERUM 4.2 mmol/L (3.5-5.1); PROTEIN - SERUM 5.8 g/dL (6.4-8.2)
--- NOTE | 2019-11-27 06:33 | NUR ---
DR. GARDNER CALLED AND ASKED TO D/C PATIENT'S SUMMERS AND START LR FLUIDS, WILL FOLLOW ORDERS
--- NOTE | 2019-11-27 06:48 | NUR ---
REMOVED SUMMERS CATH, PATIENT TOLERATED WELL.
--- NOTE | 2019-11-27 07:30 | NUR ---
AM ROUNDS COMPLETED. INTRODUCED MYSELF TO PT PRIMARY RN FOR TODAYS SHIFT. SHIFT ASSESSMENT COMPLETED. PT IS A&O SITTING UP IN BED RESTING QUIETLY. PT SHOULD BE DISCHARGED TODAY. NO CURRENT NEEDS, WILL REVIEW CHART AND ORDERS AND CPOC.
[2019-11-27 08:23] VITALS: BP 113/51
--- NOTE | 2019-11-27 09:58 | NUR ---
PTS BED ALARM GOING OFF AND UPON ENTERING ROOM PT WAS TRYING TO GET OOB WITHOUT ASSISTANCE. PT STARTING SLIDING TO FLOOR. PT DID NOT FALL OR HAVE ANY INJURIES SO I ASSISTED HER UP AND GOT HER TO THE BR. PT JUST RECENTLY HAD SUMMERS REMOVED AND STATES SHE DIDNT CALL BECAUSE SHE THOUGHT SHE COULD DO IT ON HER OWN. PT WAS ABLE TO VOID WITHOUT ANY RESISTANCE SHE STATES. (POST SUMMERS REMOVAL) EMPTIED ABOUT 400 LOOSE BROWN STOOL FROM ILEOSTOMY BAG INTO TOILET. PT AMBULATED BACK TO BED WITH JUST STAND-BY ASSISTANCE. PT NOW SITTING UP IN BED EATING BREAKFAST AND VOICED THANKS. PT WILL BE DISCHARGED TODAY AND IS HAPPY TO HEAR THIS. D/C PTS L.HAND PIV WITH CATHETER TIP FULLY INTACT. WILL WAIT ON PTS DAUGHTERS TO GET HERE AND GO OVER PAPERWORK. NO CURRENT NEEDS. CL IN REACH, BED IN LOWEST, SIDE RAILS X2 AND BUILT IN BED ALARM ON. WILL CTM.
--- NOTE | 2019-11-27 10:00 | NUR ---
D/C PTS L.HAND PIV WITH CATHETER TIP FULLY INTACT. PT RESTING QUIETLY IN BED AND DENIES ANY CURRENT PAIN OR NEEDS. CL IN REACH. WILL CPOC.
--- NOTE | 2019-11-27 10:47 | MORECARE ---
CASE MANAGEMENT DISCHARGE SUMMARY PATIENT: LONNIE NEWTON UNIT: [id number] ADM DATE: 11/25/19 AGE: 89 : [birth year] SEX: F ROOM/BED: D.2100 AUTHOR: SPENCER,DOC PHYSICIAN: REFERRING PHYSICIAN: CARLOS CONTI MD DATE OF SERVICE: 11/27/19 Discharge Plan Patient Name: LONNIE NEWTON Facility: [facility]:[place] : 1930 Planned Disposition: Home with Hospice Anticipated Discharge Date: 11/27/19 Discharge Date: Expected LOS: 2 Initial Reviewer: [id number] Initial Review Date: 11/26/2019 Generated: 11/27/19 11:47 am Comments DCP- Discharge Planning Updated by [id number]: Severino Hodges on 11/26/19 3:[address] Patient Name: LONNIE NEWTON Admission Status: Elective Accout number: [id number] Admission Date: 11-25-2019 : 1930 Admission Diagnosis: Attending: CARLOS CONTI Current LOS: 1 Anticipated DC Date: 11-27-2019 Planned Disposition: Home with Hospice Primary Insurance: [facility] MEDICARE SOLUTIONS PLANNED EXTERNAL PROVIDER: [facility] Discharge Planning Comments: CM RECEIVED HOSPICE ORDER, SPOKE TO DR. GARDNER WHO INFORMED CM THAT PT'S FAMILY REQUESTING HOME HOSPICE WITH [facility], HAS CALLED [facility]. CM MET WITH PT AND RON SOL IN ROOM. EBENEZER REPORTS THAT PT IS NOT EATING OR DRINKING AND IS HAVING [facility] ADMITS AND FAMILY AGREES THAT PT NEEDS HOSPICE AND THEY WANT TO TAKE CARE OF PT AT HOME. PT HAS BEEN MOSTLY INDEPENDENT UNTIL RECENTLY AND HAS BEEN HAVING TROUBLE WITH BALANCE AND WALKING. PT HAS CANE AND GLUCOMETER AT HOME. THEY DID HAVE HOME HEALTH THAT RECENTLY STARTED WITH [facility] CM DISCUSSED [facility] OF HOSPICE PROVIDERS AND SERVICES. THEY ARE IN AGREEMENT WITH [facility], CHOICE COMPLETED. IMPORTANT MESSAGE FROM MEDICARE PROVIDED AND EXPLAINED. CM RECEIVED CALL FROM [facility] WHO INFORMED CM THEY ARE OUT OF AREA AND DO NOT SERVICE PT'S AREA; CM DISCUSSED [facility], [facility] AND [facility]. PT'S DAUGHTER ASKED FOR [facility]; CM FOUND THAT THEY DO NOT SERVICE THE PT'S HOME AREA. PT'S DANIALRAFFAELE ASKED FOR [facility]. CM CALLED [facility], , SPOKE TO ALICIA WHO TOOK REFERRAL INFORMATION. CM RECEIVED CALL FROM ROBERT OF [facility] WHO WILL EVALUATE PT AND PROVIDE REFERRAL TO [facility] [place] TO ARRANGE ANY EQUIPMENT AND ADMIT PT UPON HER ARRIVAL AT HOME. CM FAXED REFERRAL TO [facility] AT [phone]. CM WAITING COMPLETION OF [facility] EVALUATION AND FAMILY AGREEMENT FOR HOSPICE WITH [facility]. [facility] TO ADMIT PT FOR HOME HOSPICE AFTER ARRIVAL AT HOME. Mask Inspector: Severino Hodges DCPIA - Discharge Planning Initial Assessment Updated by [id number]: Severino Hodges on 11/26/19 3:55 pm * Is the patient Alert and Oriented? Yes * How many steps to enter\exit or inside your home? * PCP DR. KRISTY GUERRA IN [place] * Pharmacy [facility] [place] * Preadmission Environment Home with Family * ADLs Partial Dependent * Partial ADLs (Assistance needed) Medication Management Transfers * Equipment Cane Glucometer * Other Equipment NO MEDICAL EQUIPMENT PROVIDER PREFERENCE * List name and contact numbers for known caregivers / representatives who currently or will assist patient after discharge: EBENEZER MCKEON, DTR, * Verbal permission to speak to the caregivers and representatives has been obtained from the patient. N/A * Community resources currently utilized Home Health * Please name any agencies selected above. [facility] * Additional services required to return to the preadmission environment? No * Can the patient safely return to the preadmission environment? Yes * Has this patient been hospitalized within the prior 30 days at any hospital? Yes Coverage Notice Reviewer: [id number] Devonte Hodges Notice Issued Date-Time: 11/26/2019 14:52 Notice Type: IM Discharge Notice Notice Delivered To: Family Member Relationship to Patient: Daughter Crude Tester Name: EBENEZER MCKEON Delivery Method: HAND - Hand Delivered Barbie Days: Prior Verbal Notification: Recipient Understood Notice: Yes Recipient Signature: Yes Med Rec Note Co-signed by Attending: Coverage Notice Comment: Reviewer: [id number] Hodges Notice Issued Date-Time: 11/26/2019 14:52 Notice Type: Patient Choice Letter Notice Delivered To: Family Member Relationship to Patient: Daughter Crude Tester Name: EBENEZER MCKEON Delivery Method: HAND - Hand Delivered Barbie Days: Prior Verbal Notification: Recipient Understood Notice: Yes Recipient Signature: Yes Med Rec Note Co-signed by Attending: Coverage Notice Comment: [facility] Last DP export: 11/26/19 3:09 p Patient Name: LONNIE NEWTON Page 90011 at 1047 All edits/amendments must be made on the electronic document DICTATION DATE: 11/27/191046 KNOWLEDGE ARCHITECT: MARKEL 11/27/19 1047 RPT#: [id number] DC DATE: STATUS: ADM IN [facility] [address] [place] [address] END OF REPORT
--- NOTE | 2019-11-27 10:54 | MORECARE ---
CASE MANAGEMENT DISCHARGE SUMMARY PATIENT: LONNIE NEWTON UNIT: [id number] ADM DATE: 11/25/19 AGE: 89 : [birth year] SEX: F ROOM/BED: D.2104 AUTHOR: SPENCER,DOC PHYSICIAN: REFERRING PHYSICIAN: CARLOS CONTI MD DATE OF SERVICE: 11/27/19 Discharge Plan Patient Name: LONNIE NEWTON Facility: [facility]:[place] : 1930 Planned Disposition: Home with Hospice Anticipated Discharge Date: 11/27/19 Discharge Date: Expected LOS: 2 Initial Reviewer: [id number] Initial Review Date: 11/26/2019 Generated: 11/27/19 11:54 am Comments DCP- Discharge Planning Updated by [id number]: Severino Hodges on 11/27/19 9:[address] Patient Name: LONNIE NEWTON Encounter No: [id number] : 1930 Primary Insurance: [employer] MEDICARE SOLUTIONS Anticipated DC Date: 11-27-2019 Planned Disposition: Home with Hospice External Planned Provider: [facility] DCP follow-up note: CM CALLED [facility] IN [place], m SPOKE TO ANNA WHO INFORMED CM THAT ALL MEDICAL EQUIPMENT IS ARRANGED AND THEY ONLY NEED A CALL WHEN PT LEAVES HOSPITAL AND WILL HAVE NURSE ADMIT TODAY AFTER PT ARRIVES AT HOME. SHALE PLANER OPERATOR NURSE NOTIFED, CM WAS ADVISED BY NURSE THAT FAMILY SHOULD BE ON THE WAY HERE AT NOON TODAY. CM FAXED DISCHARGE INFORMATION TO [facility]. FAMILY TO TRANSPORT HOME. WHEN PT LEAVES HOSPITAL TODAY TO GO HOME, NOTIFY [facility] AT [phone], WHO WILL ADMIT PT TO HOSPICE AFTER HER ARRIVAL HOME TODAY. Severino Hodges, CASE DAMARIS DCP- Discharge Planning Updated by [id number]: Severino Hodges on 11/26/19 3:[address] Patient Name: LONNIE NEWTON Admission Status: Elective Accout number: [id number] Admission Date: 11-25-2019 : 1930 Admission Diagnosis: Attending: CARLOS CONTI Current LOS: 1 Anticipated DC Date: 11-27-2019 Planned Disposition: Home with Hospice Primary Insurance: [employer] MEDICARE SOLUTIONS PLANNED EXTERNAL PROVIDER: [facility] Discharge Planning Comments: CM RECEIVED HOSPICE ORDER, SPOKE TO DR. GARDNER WHO INFORMED CM THAT PT'S FAMILY REQUESTING HOME HOSPICE WITH [facility], HAS CALLED [facility]. CM MET WITH PT AND RON SOL IN ROOM. EBENEZER REPORTS THAT PT IS NOT EATING OR DRINKING AND IS HAVING [facility] ADMITS AND FAMILY AGREES THAT PT NEEDS HOSPICE AND THEY WANT TO TAKE CARE OF PT AT HOME. PT HAS BEEN MOSTLY INDEPENDENT UNTIL RECENTLY AND HAS BEEN HAVING TROUBLE WITH BALANCE AND WALKING. PT HAS CANE AND GLUCOMETER AT HOME. THEY DID HAVE HOME HEALTH THAT RECENTLY STARTED WITH [facility] CM DISCUSSED [facility] OF HOSPICE PROVIDERS AND SERVICES. THEY ARE IN AGREEMENT WITH [facility], CHOICE COMPLETED. IMPORTANT MESSAGE FROM MEDICARE PROVIDED AND EXPLAINED. CM RECEIVED CALL FROM [facility] WHO INFORMED CM THEY ARE OUT OF AREA AND DO NOT SERVICE PT'S AREA; CM DISCUSSED [facility], [facility] AND [facility]. PT'S DAUGHTER ASKED FOR [facility]; CM FOUND THAT THEY DO NOT SERVICE THE PT'S HOME AREA. PT'S DAUHTER ASKED FOR [facility]. CM CALLED [facility], , SPOKE TO ALICIA WHO TOOK REFERRAL INFORMATION. CM RECEIVED CALL FROM ROBERT OF [facility] WHO WILL EVALUATE PT AND PROVIDE REFERRAL TO [facility] [place] TO ARRANGE ANY EQUIPMENT AND ADMIT PT UPON HER ARRIVAL AT HOME. CM FAXED REFERRAL TO [facility] AT [phone]. CM WAITING COMPLETION OF [facility] EVALUATION AND FAMILY AGREEMENT FOR HOSPICE WITH [facility]. [facility] TO ADMIT PT FOR HOME HOSPICE AFTER ARRIVAL AT HOME. Cabinet Installer: Severino Hodges DCPIA - Discharge Planning Initial Assessment Updated by [id number]: Severino Hodges on 11/26/19 3:55 pm * Is the patient Alert and Oriented? Yes * How many steps to enter\exit or inside your home? * PCP DR. KRISTY GUERRA IN [place] * Pharmacy [facility] [place] * Preadmission Environment Home with Family * ADLs Partial Dependent * Partial ADLs (Assistance needed) Medication Management Transfers * Equipment Cane Glucometer * Other Equipment NO MEDICAL EQUIPMENT PROVIDER PREFERENCE * List name and contact numbers for known caregivers / representatives who currently or will assist patient after discharge: EBENEZER MCKEON, DTR, * Verbal permission to speak to the caregivers and representatives has been obtained from the patient. N/A * Community resources currently utilized Home Health * Please name any agencies selected above. [facility] * Additional services required to return to the preadmission environment? No * Can the patient safely return to the preadmission environment? Yes * Has this patient been hospitalized within the prior 30 days at any hospital? Yes Coverage Notice Reviewer: [id number] Hodges Notice Issued Date-Time: 11/26/2019 14:52 Notice Type: IM Discharge Notice Notice Delivered To: Family Member Relationship to Patient: Daughter Binder Roller Name: EBENEZER MCKEON Delivery Method: HAND - Hand Delivered Barbie Days: Prior Verbal Notification: Recipient Understood Notice: Yes Recipient Signature: Yes Med Rec Note Co-signed by Attending: Coverage Notice Comment: Reviewer: [email or web address] Hodges Notice Issued Date-Time: 11/26/2019 14:52 Notice Type: Patient Choice Letter Notice Delivered To: Family Member Relationship to Patient: Daughter Binder Roller Name: EBENEZER MCKEON Delivery Method: HAND - Hand Delivered Barbie Days: Prior Verbal Notification: Recipient Understood Notice: Yes Recipient Signature: Yes Med Rec Note Co-signed by Attending: Coverage Notice Comment: [facility] Last DP export: 11/27/19 9:47 a Patient Name: LONNIE NEWTON Page 16064 at 1054 All edits/amendments must be made on the electronic document DICTATION DATE: 11/27/19 105 TIN ASSORTER: MARKEL 11/27/19 1054 RPT#: [id number] DC DATE: STATUS: ADM IN [facility] [address] [place] [address] END OF REPORT
--- NOTE | 2019-11-27 11:40 | NUR ---
ASSISTED PT UP IN BED TO EAT LUNCH. PT SITTING UP AND EATING AND STATES SHE IS FEELING GOOD AND WANTS TO GO HOME. WAITING ON PTS DAUGHTERS FOR DISCHARGE TRANSPORTATION. NO CURRENT NEEDS. WILL CTM.
[2019-11-27 13:27] VITALS: BP 112/50
--- NOTE | 2019-11-27 15:02 | NUR ---
DISCHARGE TEACHING PROVIDED AND PAPERS SIGNED. FAMILY AT BEDSIDE COLLECTING HER BELONGINGS. D/C PTS TELEMETRY MONIT AND RETURNED TO [facility]. EMPTIED OSTOMY BAG OF ABOUT 300CC LIQUID STOOL. PT VOIDED AGAIN WELL. ASSISTED PT INTO WHEELCHAIR AND WILL ESCORT OUT AT THIS TIME.
--- NOTE | 2019-11-27 16:27 | MORECARE ---
CASE MANAGEMENT DISCHARGE SUMMARY PATIENT: LONNIE NEWTON UNIT: [id number] ADM DATE: 11/25/19 AGE: 89 : [birth year] SEX: F ROOM/BED: D.2104 AUTHOR: SPENCER,DOC PHYSICIAN: REFERRING PHYSICIAN: CARLOS CONTI MD DATE OF SERVICE: 11/27/19 Discharge Plan Patient Name: LONNIE NEWTON Facility: [facility]:[place] : 1930 Planned Disposition: Home with Hospice Anticipated Discharge Date: 11/27/19 Discharge Date: 11/27/2019 Expected LOS: 2 Initial Reviewer: [id number] Initial Review Date: 11/26/2019 Generated: 11/27/19 5:27 pm Comments DCP- Discharge Planning Updated by [id number]: Severino Naranjo on 11/27/19 3:[address] Patient Name: LONNIE NEWTON Encounter No: [id number] : 1930 Primary Insurance: [facility] [employer] Anticipated DC Date: 11-27-2019 Planned Disposition: Home with Hospice External Planned Provider: [facility] DCP follow-up note: CM CALLED [facility] IN [place], M SPOKE TO ANNA WHO INFORMED CM THAT ALL MEDICAL EQUIPMENT IS ARRANGED AND THEY ONLY NEED A CALL WHEN PT LEAVES HOSPITAL AND WILL HAVE NURSE ADMIT TODAY AFTER PT ARRIVES AT HOME. COMMISSION AUDITOR NURSE NOTIFED, CM WAS ADVISED BY NURSE THAT FAMILY SHOULD BE ON THE WAY HERE AT [place] TODAY. CM FAXED DISCHARGE INFORMATION TO [facility]. FAMILY TO TRANSPORT HOME. WHEN PT LEAVES HOSPITAL TODAY TO GO HOME, NOTIFY [facility] AT [phone], WHO WILL ADMIT PT TO HOSPICE AFTER HER ARRIVAL HOME TODAY. Severino Naranjo, CASE MANAGEMENT Appended by Severino Naranjo on 11/27/2019 16:22 CDT: PT'S FAMILY ARRIVED AND PICKED UP PT FOR TRANSPORT HOME, . CM CALLED AND NOTIFIED REBEKAH OF [facility] THAT PT WAS DISCHARGING HOME. SEVERINO NARANJO, CASE DAMARIS DCP- Discharge Planning Updated by [id number]: Severino Naranjo on 11/26/19 3:[address] Patient Name: LONNIE NEWTON Admission Status: Elective Accout number: [id number] Admission Date: 11-25-2019 : 1930 Admission Diagnosis: Attending: CARLOS CONTI Current LOS: 1 Anticipated DC Date: 11-27-2019 Planned Disposition: Home with Hospice Primary Insurance: [facility] [employer] PLANNED EXTERNAL PROVIDER: [facility] Discharge Planning Comments: CM RECEIVED HOSPICE ORDER, SPOKE TO DR. GARDNER WHO INFORMED CM THAT PT'S FAMILY REQUESTING HOME HOSPICE WITH [facility], HAS CALLED [facility]. CM MET WITH PT AND RON SOL IN ROOM. EBENEZER REPORTS THAT PT IS NOT EATING OR DRINKING AND IS HAVING [facility] ADMITS AND FAMILY AGREES THAT PT NEEDS HOSPICE AND THEY WANT TO TAKE CARE OF PT AT HOME. PT HAS BEEN MOSTLY INDEPENDENT UNTIL RECENTLY AND HAS BEEN HAVING TROUBLE WITH BALANCE AND WALKING. PT HAS CANE AND GLUCOMETER AT HOME. THEY DID HAVE HOME HEALTH THAT RECENTLY STARTED WITH [facility] CM DISCUSSED [facility] OF HOSPICE PROVIDERS AND SERVICES. THEY ARE IN AGREEMENT WITH [facility], CHOICE COMPLETED. IMPORTANT MESSAGE FROM MEDICARE PROVIDED AND EXPLAINED. CM RECEIVED CALL FROM [facility] WHO INFORMED CM THEY ARE OUT OF AREA AND DO NOT SERVICE PT'S AREA; CM DISCUSSED [facility], [facility] AND [facility]. PT'S DAUGHTER ASKED FOR [facility]; CM FOUND THAT THEY DO NOT SERVICE THE PT'S HOME AREA. PT'S DAUHTER ASKED FOR [facility]. CM CALLED [facility], , SPOKE TO ALICIA WHO TOOK REFERRAL INFORMATION. CM RECEIVED CALL FROM ROBERT OF [facility] WHO WILL EVALUATE PT AND PROVIDE REFERRAL TO [facility] [place] TO ARRANGE ANY EQUIPMENT AND ADMIT PT UPON HER ARRIVAL AT HOME. CM FAXED REFERRAL TO [facility] AT [phone]. CM WAITING COMPLETION OF [facility] EVALUATION AND FAMILY AGREEMENT FOR HOSPICE WITH [facility]. [facility] TO ADMIT PT FOR HOME HOSPICE AFTER ARRIVAL AT HOME. Ragman: Severino Naranjo DCPIA - Discharge Planning Initial Assessment Updated by [email or web address]: Severino Naranjo on 11/26/19 3:55 pm * Is the patient Alert and Oriented? Yes * How many steps to enter\exit or inside your home? * PCP DR. KRISTY GUERRA IN [place] * Pharmacy [facility] IN [place] * Preadmission Environment Home with Family * ADLs Partial Dependent * Partial ADLs (Assistance needed) Medication Management Transfers * Equipment Cane Glucometer * Other Equipment NO MEDICAL EQUIPMENT PROVIDER PREFERENCE * List name and contact numbers for known caregivers / representatives who currently or will assist patient after discharge: EBENEZER MCKEON, DTR, * Verbal permission to speak to the caregivers and representatives has been obtained from the patient. N/A * Community resources currently utilized Home Health * Please name any agencies selected above. [facility] * Additional services required to return to the preadmission environment? No * Can the patient safely return to the preadmission environment? Yes * Has this patient been hospitalized within the prior 30 days at any hospital? Yes Coverage Notice Reviewer: [id number] Naranjo Notice Issued Date-Time: 11/26/2019 14:52 Notice Type: IM Discharge Notice Notice Delivered To: Family Member Relationship to Patient: Daughter Hris Analyst Name: EBENEZER MCKEON Delivery Method: HAND - Hand Delivered Barbie Days: Prior Verbal Notification: Recipient Understood Notice: Yes Recipient Signature: Yes Med Rec Note Co-signed by Attending: Coverage Notice Comment: Reviewer: [id number] Naranjo Notice Issued Date-Time: 11/26/2019 14:52 Notice Type: Patient Choice Letter Notice Delivered To: Family Member Relationship to Patient: Daughter Hris Analyst Name: EBENEZER MCKEON Delivery Method: HAND - Hand Delivered Barbie Days: Prior Verbal Notification: Recipient Understood Notice: Yes Recipient Signature: Yes Med Rec Note Co-signed by Attending: Coverage Notice Comment: [facility] Last DP export: 11/27/19 9:54 a Patient Name: LONNIE NEWTON Page [id number] at 1627 All edits/amendments must be made on the electronic document DICTATION DATE: 11/27/191626 EDUCATION MANAGERS: MARKEL 11/27/191626 RPT#: [id number] DC DATE:11/27/19 STATUS: DIS IN [facility] [address] [place] [address] END OF REPORT
== END 2019-11-27 15:07 | disposition home health service (06) | DRG 682 ==
LOC: D.ER 09:44 → D.M2 11:04
PROVIDERS: Family Medicine; Internal Medicine; ADMIT Internal Medicine Nephrology; ATTEND Internal Medicine Nephrology
DX: N17.9 Acute kidney failure, unspecified (principal); E43 Unspecified severe protein-calorie malnutrition; G93.41 Metabolic encephalopathy; D61.818 Other pancytopenia; E87.0 Hyperosmolality and hypernatremia; Z68.1 Body mass index [BMI] 19.9 or less, adult; D64.9 Anemia, unspecified; E87.5 Hyperkalemia; F03.90 Unspecified dementia, unspecified severity, without behavioral disturbance, psychotic disturbance, mood disturbance, and anxiety; F50.89 Other specified eating disorder; S00.83XA Contusion of other part of head, initial encounter; W19.XXXA Unspecified fall, initial encounter; I12.9 Hypertensive chronic kidney disease with stage 1 through stage 4 chronic kidney disease, or unspecified chronic kidney disease; E11.22 Type 2 diabetes mellitus with diabetic chronic kidney disease; N18.9 Chronic kidney disease, unspecified; Z91.81 History of falling; Z85.3 Personal history of malignant neoplasm of breast; Z85.038 Personal history of other malignant neoplasm of large intestine